=== PATIENT | female | born 1940 | race Caucasian/White ===

== ENCOUNTER → 2019-08-11 | Outpatient (CLI) | payer MEDICARE ==
--- NOTE | 2019-08-11 10:40 | RAD ---
KNEE RIGHT 3V 08/11/2019 10:07 AM INDICATION: Right knee pain with swelling COMPARISON: None available. TECHNIQUE: 3 views of the right knee are provided. FINDINGS: Right total knee arthroplasty is identified with patellar resurfacing. There is no lucency surrounding the hardware. There is minimal lucency deep to the cemented portion of the medial tibial plateau without definite fracture. There is no acute fracture or dislocation. Bone mineralization is within normal limits. Joint spaces are maintained. Regional soft tissues are within normal limits. There is no soft tissue gas or osseous erosion. No significant knee joint effusion. IMPRESSION: Left total knee arthroplasty without acute fracture or dislocation. Lucency is noted deep to the cemented portion of the medial tibial plateau which is nonspecific. If there is persistent clinical concern, bone scan may be of benefit. Electronically signed by: Mercy Gutierrez MD (08/11/2019 10:37 AM) [facility]
== END | disposition home or self-care (01) ==
LOC: RAD 09:31
PROVIDERS: ATTEND Physician Assistant Medical
DX: M25.461 Effusion, right knee (principal); Z96.651 Presence of right artificial knee joint
CPT/HCPCS: 73562

== ENCOUNTER → 2019-08-22 | Outpatient (CLI) | payer MEDICARE ==
--- NOTE | 2019-08-22 11:40 | RAD ---
EXAM: Right lower extremity venous Doppler. HISTORY: Right lower extremity pain/swelling. COMPARISON: None. FINDINGS: Grayscale and Doppler analysis of the right lower extremity deep venous system was performed with graded compression and augmentation. The common femoral, greater saphenous, superficial femoral, popliteal and calf veins were assessed. There is no evidence of deep venous thrombosis. IMPRESSION: 1. No evidence of deep venous thrombosis. Electronically signed by: Annie Causey MD (08/22/2019 11:37 AM) [facility]
== END | disposition home or self-care (01) ==
LOC: US 10:26
PROVIDERS: ATTEND Physician Assistant Medical
DX: M25.561 Pain in right knee (principal); M79.89 Other specified soft tissue disorders; M25.461 Effusion, right knee
CPT/HCPCS: 93971

== ENCOUNTER → 2020-08-18 | Outpatient (CLI) | payer MEDICARE ==
--- NOTE | 2020-08-20 13:52 | RAD ---
DATE: 08/18/2020 3:21 PM EXAM: MAMMO ZARA SCREENING BILATERAL HISTORY: Screening COMPARISON: 08/06/2019, 08/03/2018 Bilateral CC and MLO views of the breasts were performed. Bilateral breast tomosynthesis was performed in CC and MLO projections. This study was interpreted with the benefit of Computerized Aided Detection (CAD). FINDINGS: Breast Density: FATTY The Breast Parenchyma is primarily fatty replaced. Breast parenchyma level density A. Stable benign postsurgical change in the lateral posterior right breast. No suspicious masses, microcalcifications or architectural distortion is present to suggest malignancy in either breast. The visualized axillae are unremarkable. IMPRESSION: No mammographic evidence of malignancy. BI-RADS CATEGORY: 2 BENIGN FINDING(S) RECOMMENDED FOLLOW-UP: 12M 12 MONTH FOLLOW-UP Annual screening mammography is recommended, unless clinically indicated sooner based on symptoms or change in physical exam. PQRS compliance statement: Patient information was entered into a reminder system with a target due date for the next mammogram. Mammography is a sensitive method for finding small breast cancers, but it does not detect them all and is not a substitute for careful clinical examination. A negative mammogram does not negate a clinically suspicious finding and should not result in delay in biopsying a clinically suspicious abnormality. "Our facility is accredited by the [employer] Mammography [employer]."
== END ==
LOC: MAMMO 15:11
PROVIDERS: ATTEND Physician Assistant Medical
DX: Z12.31 Encounter for screening mammogram for malignant neoplasm of breast (principal)
CPT/HCPCS: 77063; 77067

== ENCOUNTER → 2021-06-24 | Outpatient (CLI) | payer MEDICARE, BC ==
--- NOTE | 2021-06-25 09:46 | RAD ---
XR LUMBAR SPINE 4+V History: Reason: / Spl. Instructions: / History: Pain Technique: 5 views lumbar spine. Comparison: CT July 15, 2015 Findings: Chronic L1 mild compression fracture. Severe L2 compression fracture status post kyphoplasty. Partial lumbarization of S1. Grade 1 anterolisthesis L4 on L5 and L5 on S1. Mild retrolisthesis L3 on L4. Mo derate degenerative disc changes most prominent L3-L4, L4-5 and L5-S1. Advanced lower lumbar facet ar thropathy. Impression: 1. Multilevel lumbar spondylosis most prominent L4-5 and L5-S1. 2. Grade 1 anterolisthesis L4 on L5 and L5 on S1 3. Chronic L1 and L2 compression fractures. Electronically signed by: Gurvinder Mccormick DO (06/25/2021 9:43 AM) [id number]
== END ==
LOC: RAD 12:18
PROVIDERS: ATTEND Physician Assistant Medical
DX: M47.817 Spondylosis without myelopathy or radiculopathy, lumbosacral region (principal); M43.17 Spondylolisthesis, lumbosacral region; M48.56XA Collapsed vertebra, not elsewhere classified, lumbar region, initial encounter for fracture; M48.8X6 Other specified spondylopathies, lumbar region; Z98.890 Other specified postprocedural states
CPT/HCPCS: 72110

== ENCOUNTER → 2021-07-03 | Outpatient (CLI) | payer MEDICARE, BC ==
--- NOTE | 2021-07-03 11:39 | RAD ---
PQRS Compliance Statement: One or more of the following individualized dose reduction techniques were utilized for this examinat ion: 1. Automated exposure control 2. Adjustment of the mA and/or kV according to patient size 3. Use of iterative reconstruction technique Exam performed: CT scan of the abdomen and pelvis without contrast. Clinical Indication: Reason: LEFT FLANK PAIN, REOCCURING UTI'S, DYSURIA / Spl. Instructions: HX OF BR EAST CA, ADRENAL GLAND REMOVED (MASS), SPINE FRACTURE / History: Date of Service: 07/03/2021 9:30 AM. Comparison: None available Technique: Contiguous helical acquisitions are obtained through the abdomen and pelvis without IV con trast. Sagittal and coronal reformatted images are obtained and reviewed. CT abdomen and pelvis findings: Linear right basilar atelectesis. Visualized heart is normal. Lack of IV contrast limits evaluation of abdominal viscera, however the liver, spleen and pancreas ar e normal. Cholelithiasis. Right adrenelectomy. Left adrenal gland is normal and bilateral kidneys ar e normal in size without hydronephrosis or nephrolithiasis. Aorta is normal in caliber without aneury sm. mild atheromatous calcifications of aorta. Small and large bowel loops are normal. Scattered athe romatous calcifications of the aorta is seen. The visualized portion of the appendix is unremarkable. Distal ureters are nondilated. Urinary bladder is decompressed . Uterus is anteverted. No adnexal ma sses seen. Generalized osteopenia with compression fracture L1 and L2 vertebral bodies.Grade 1anterol istesis Impression: No acute intra-abdominal or pelvic process detected. Scattered stool throughout the colon. Electronically signed by: Renetta Toledo MD (07/03/2021 11:36 AM) [facility]
== END ==
LOC: CT 09:19
PROVIDERS: ATTEND Physician Assistant Medical
DX: R30.0 Dysuria (principal); N39.0 Urinary tract infection, site not specified; M54.50 Low back pain, unspecified
CPT/HCPCS: 74176

== ENCOUNTER → 2021-08-25 | Outpatient (CLI) | payer BC ==
--- NOTE | 2021-08-25 12:35 | RAD ---
Bilateral digital screening mammogram 08/25/2021 CLINICAL HISTORY: Screening study. Digital MLO and CC mammograms of both breasts were obtained. Comparison study is dated 08/20/2020. The breast parenchyma is composed of scattered fibroglandular densities which could obscure a lesion on mammography (breast density B). Postsurgical changes are again seen involving the right breast. An area of scarring is seen involving the upper outer quadrant of the right breast, unchanged. Benign-a ppearing and vascular calcifications are seen within both breasts. No dominant mass is seen. No malig nant appearing calcification or new area of architectural distortion is noted. Impression: BI-RADS Category 2: Benign findings. There is no mammographic evidence of malignancy. Rou sherly yearly screening mammography is recommended for follow-up. This examination was reviewed with the aid of computer-aided detection. A mammogram does not have 100% sensitivity and therefore a negative imaging study should not delay fu rther work up of a suspicious abnormality. Patient information is entered into the reminder system with a target due date for the next screening mammogram of 08/25/2022. "Our facility is accredited by the [employer] Mammography [employer]." Electronically signed by: Milo Santiago MD (08/25/2021 12:32 PM) [id number]
== END ==
LOC: MAMMO 08:10
PROVIDERS: ATTEND Physician Assistant Medical
DX: Z12.31 Encounter for screening mammogram for malignant neoplasm of breast (principal)
CPT/HCPCS: 77067

== ENCOUNTER → 2021-09-02 | Outpatient (CLI) | payer BC ==
--- NOTE | 2021-09-02 12:15 | RAD ---
EXAM: ULTRASOUND ABDOMEN LIMITED CLINICAL HISTORY: Reason: N/V / Spl. Instructions: / History: COMPARISON: None available. TECHNIQUE: Limited ultrasound examination of the right upper quadrant of the abdomen was performed. FINDINGS: The head and body of the pancreas are unremarkable. The tail is obscured by intestinal gas.. Liver: 14.5 cm in length. Increased hepatic echogenicity relative to the right kidney consistent wi th hepatic steatosis. Cyst is seen within the right hepatic lobe measuring 1.2 cm. Flow seen within the portal veins. Biliary: Cholelithiasis. No wall thickening or pericholecystic fluid. There is no pain with direct transducer pressure over the gallbladder. Common bile duct measures 0.8 cm. Right Kidney: 9.3 cm in bipolar length. Normal renal cortical echotexture and thickness. No focal evita al lesion, shadowing renal calculus or hydronephrosis. Visualized portions of the abdominal aorta and inferior vena cava are unremarkable. There is no free fluid in the subhepatic space. IMPRESSION: 1. Cholelithiasis without sonographic evidence for acute cholecystitis. 2. Fatty liver. 3. Simple cyst right hepatic lobe. Electronically signed by: Shaheen Lopez MD (09/02/2021 12:13 PM) [id number]
== END ==
LOC: US 08:37
PROVIDERS: ATTEND Physician Assistant Medical
DX: K80.20 Calculus of gallbladder without cholecystitis without obstruction (principal); K76.0 Fatty (change of) liver, not elsewhere classified; K76.89 Other specified diseases of liver; R11.2 Nausea with vomiting, unspecified
CPT/HCPCS: 76705